=== PATIENT | female | born 1985 | race Caucasian/White ===

== ENCOUNTER 2017-12-10 08:53 | Inpatient (IN) | payer BC ==
[2017-12-04 15:12] VITALS: BMI 24.3
[2017-12-10] MEDS ORDERED: LACTATED RINGERS 1,000 ML IV ONE (10:07)
[2017-12-10] MEDS ORDERED: CITRIC ACID-SODIUM CITRATE 15 ML CUP PO ONE (10:07)
[2017-12-10 10:41] LABS: Basophils % (A) 0 %; Eosinophils % (A) 0 %; HCT 36.3 % (34.0-46.0); HGB 12.2 gm/dL (11.4-16.0); Lymphocytes # (A) 1.4 k/uL (1.0-4.8); Lymphocytes % (A) 20 %; MCH 28.6 pg (25.0-35.0); MCHC 33.5 g/dL (31.0-37.0); MCV 85.2 fL (80.0-100.0); Mean Platelet Volume 7.8; Monocytes # (A) 0.4 k/uL (0-1.0); Monocytes % (A) 5 %; Neutrophils # (A) 5.2 k/uL (1.3-7.7); Neutrophils % (A) 72 %; Platelet Count 192 k/uL (150-450); RBC 4.26 m/uL (3.80-5.40); RDW 13.3 % (11.5-15.5); WBC 7.2 k/uL (3.8-10.6)
[2017-12-10] MEDS ORDERED: CLINDAMYCIN 600 MG in DEXTROSE 5% IN WATER 50 ML IVPB STA ×2 (11:06)
[2017-12-10] MEDS: LACTATED RINGERS 1,000 ML IV SCH ×3 (11:07→23:34)
[2017-12-10] MEDS ORDERED: ONDANSETRON 4 MG/2 ML VIAL ONE (12:00)
[2017-12-10] MEDS ORDERED: KETOROLAC 30 MG/ML 1 ML VIAL ONE (12:00)
[2017-12-10] MEDS ORDERED: NALBUPHINE 10 MG/ML VIAL (10ML MDV) ONE (12:00)
[2017-12-10] MEDS ORDERED: OXYTOCIN 10 UNIT/ML 1 ML VIAL ONE (12:00)
[2017-12-10] MEDS ORDERED: fentaNYL (PF) 50 MCG/ML 2 ML AMP ONE (12:00)
[2017-12-10] MEDS ORDERED: MORPHINE SULFATE (PF) 0.3 MG/0.3 ML SYR ONE (12:00)
[2017-12-10] MEDS ORDERED: PHENYLEPHRINE-0.9% NACL SYG 1 MG/10 ML SYRINGE ONE (12:00)
[2017-12-10] MEDS ORDERED: NALOXONE 0.4 MG/ML 1 ML VIAL IV PRN ×2 (12:30→12:55)
[2017-12-10] MEDS ORDERED: diphenhydrAMINE 50 MG/ML 1 ML VIAL IVP PRN ×2 (12:55)
[2017-12-10] MEDS ORDERED: diphenhydrAMINE 25 MG CAP PO PRN (12:55)
[2017-12-10] MEDS ORDERED: ONDANSETRON 4 MG/2 ML VIAL IVP PRN ×2 (12:55→20:43)
[2017-12-10] MEDS ORDERED: diphenhydrAMINE 50 MG CAP PO PRN (12:55)
[2017-12-10] MEDS ORDERED: ZOLPIDEM 5 MG TAB PO PRN (12:55)
[2017-12-10] MEDS ORDERED: METOCLOPRAMIDE 5 MG/ML 2 ML VIAL IVP PRN (12:55)
[2017-12-10] MEDS ORDERED: LANOLIN CREAM 5 GM TUBE TOPICAL PRN (12:55)
[2017-12-10] MEDS ORDERED: OXYTOCIN 20 UNITS/1000 ML NS 1,000 ML IV SCH (13:00)
[2017-12-10] MEDS ORDERED: ACETAMINOPHEN IV (For NPO) 1,000 MG in EMPTY BAG 1 BAG IVPB ONE (13:00)
[2017-12-10] MEDS ORDERED: LACTATED RINGERS 1,000 ML IV SCH (13:00)
--- NOTE | 2017-12-10 13:02 | P.HPOB ---
History of Present Illness H&P Date: 12/10/17 Chief Complaint: IUP at 39-3/7 weeks, history of tailbone fracture desires LTCS with tubal This is a 32-year-old 2 para 1001 at 39-3/7 weeks with an estimated due date of 12/14/2017. Patient has had routine care with myself since the first trimester. She is without complaints this morning she is noting good movement denies contractions no vaginal bleeding or loss of fluid. On blood work she has a blood type of O+, rubella immune, hepatitis B surface antigen negative, HIV negative, RPR nonreactive, GBS neg Review of Systems Constitutional: Denies chills, Denies fever Cardiovascular: Denies edema Respiratory: Denies cough Gastrointestinal: Denies constipation, Denies diarrhea Genitourinary: Reports Past Medical History Past Medical History: No Reported History Additional Past Medical History / Comment(s): Tailbone fracture History of Any Multi-Drug Resistant Organisms: None Reported Past Surgical History: No Surgical Hx Reported Additional Past Surgical History / Comment(s): [place] Tooth Extraction Past Anesthesia/Blood Transfusion Reactions: No Reported Reaction Additional Past Anesthesia/Blood Transfusion Reaction / Comment(s): no hx general anesthesia or blood transfusion Past Psychological History: No Psychological Hx Reported Smoking Status: Never smoker Past Alcohol Use History: None Reported Past Drug Use History: None Reported - Past Family History Father Family Medical History: No Reported History Medications and Allergies Home Medications Medication Instructions Recorded Confirmed Type Pnv,Calcium 72/Iron/Folic Acid 1 tab PO DAILY 10/13/12/10/17 History [ Plus Tablet] Allergies Allergy/AdvReac Type Severity Reaction Status Date / Time Penicillins Allergy Unknown Verified 12/10/17 10:07 Childhood Exam Osteopathic Statement: *. No significant issues noted on an osteopathic structural exam other than those noted in the History and Physical/Consult. - Vital Signs Vital signs: Vital Signs Temp Pulse Resp BP Pulse Ox 12/10/17 10:09 97.5 F L 84 14 109/61 100 - OBG Physical Exam Abdomen: Gravid Uterus: enlarged (Appropriate for gestational age) Results Result Diagrams: 12/10/17 10:15 Assessment and Plan (1) Term Current Visit: Yes Status: Acute Code(s): Z34.80 - ENCOUNTER FOR SUPRVSN OF NORMAL , UNSP TRIMESTER SNOMED Code(s): 12434215 (2) Tailbone injury Current Visit: Yes Status: Acute Code(s): S39.92XA - UNSPECIFIED INJURY OF LOWER BACK, INITIAL ENCOUNTER SNOMED Code(s): 238428069 Plan: Plan primary low transverse section with tubal secondary to history of tailbone fracture and low back discomfort since the fracture. She does desire tubal ligation and is done with childbearing. was discussed with the patient in detail risks were reviewed patient stated understanding and informed consent was obtained. Will proceed OR
--- NOTE | 2017-12-10 13:06 | P.OP ---
Date of Procedure: 12/10/17 Preoperative Diagnosis: IUP at 39 and 3, history of tailbone fracture, family status complete Postoperative Diagnosis: Same Procedure(s) Performed: Primary low transverse section with tubal ligation Anesthesia: spinal Surgeon: Carlyn Brower Yard Assistant #1: Ralph Viveros Estimated Blood Loss (ml): 600 IV fluids (ml): 1,500 Urine output (ml): 500 Pathology: none sent Condition: stable Disposition: observation Indications for Procedure: History of tailbone fracture Operative Findings: Normal uterus tubes and ovaries were appreciated Description of Procedure: The patient was prepped and draped in the usual fashion after spinal anesthesia was administered by anesthesia. A Pfannenstiel incision was made and extended of the abdominal cavity without difficulty. The bladder peritoneum was elevated and incised and reflected distally. A 2 cm incision was made in the transverse plane of the lower uterine segment to enter the uterus at which time clear fluid was noted. The incision was extended in both directions using the bandage scissors. The head was encountered within the field and delivered up and through the incision where the nose and mouth were thoroughly suctioned. Remainder of the was delivered onto the surgical field where the cord was doubly clamped, cut, and the infant was passed for resuscitative measures with weight and Apgars as noted above. A segment of cord was then doubly clamped, cut, and set aside should cord gases become necessary. The placenta was delivered manually, intact, and was grossly normal with a grossly normal three-vessel cord. The uterus was exteriorized and the interior cavity of the uterus swept of any remaining placental and membranous fragments with a laparotomy sponge. The margins of the incision were grasped with allis clamps and the incision closed in 2 layers. First layer was a running locking layer of 0 vicryl from margin to margin followed by a second layer of imbricating 0 vicryl from margin to margin. Any small points of bleeding were then made hemostatic with the Bovie. Once hemostasis was achieved, the posterior cul-de- sac was suctioned with a guard and the uterine and ovarian findings are as noted above. The left fallopian tube was then grasped the [place] clamp crushed with a stat, and tied off 2 with oh plain catgut section of tube was then transected and hemostasis was appreciated. This was then repeated on the opposite side with good hemostasis noted once again The uterus was replaced within the abdominal cavity and the gutters swept of any remaining blood fluid or clot. The incision was again reexamined and hemostasis was noted to be excellent. Any small point of bleeding were made hemostatic with the Bovie. Once hemostasis was achieved the parietal peritoneum was loosely reapproximated. The layer of muscles were examined and made hemostatic with the Bovie. Attention was then turned to the fascia which was closed with 2 running stitches of 0 Vicryl proceeding from the lateral margins to the midpoint. The subcutaneous tissues were irrigated, made hemostatic with the Bovie, and reapproximated with a running stitch of 30 plain catgut. The skin was reapproximated with regular surgical van. Estimated blood loss for the case was approximately 600 mL. All sponge instrument and needle counts are correct. There were no complications. The patient tolerated the procedure well and proceeded to the recovery room in stable condition. Both mother and are resting comfortably in recovery. male infant delivered at 1221, weight 7-4, apgars 8-9 at one and 5 minutes respectively.
[2017-12-10] MEDS ORDERED: IBUPROFEN IV 800 MG in SODIUM CHLORIDE 0.9% 250 ML IV ONE (13:30)
[2017-12-10] MEDS: SENNOSIDES-DOCUSATE SODIUM 1 EACH TAB PO SCH (20:23)
[2017-12-11] MEDS: IBUPROFEN 600 MG TAB PO PRN ×4 (02:54→23:55)
[2017-12-11] MEDS: SENNOSIDES-DOCUSATE SODIUM 1 EACH TAB PO SCH ×2 (07:50→19:27)
[2017-12-11] MEDS: PRENATAL VIT-IRON-FOLIC ACID 1 EACH CAP PO SCH (07:51)
[2017-12-11] MEDS: ACETAMINOPHEN TAB 325 MG TAB PO PRN ×2 (07:51→12:20)
--- NOTE | 2017-12-11 08:27 | P.PNOBGPC ---
Subjective - Subjective Principal diagnosis: Postop day 1 status post primary low transverse section with tubal Interval history: Patient's postoperative course is going well. She is ambulating and voiding without difficulty. She states her pain is well-controlled with oral Tylenol and Motrin. She denies nausea or vomiting and is tolerating a regular diet. She is breast-feeding without difficulty and states her lochia is moderate. Patient reports: Reports appetite normal, Reports voiding normally, Reports pain well controlled, Reports ambulating normally [place]: doing well (At the bedside with mom) Objective - Vital Signs Latest vital signs: Vital Signs Temp Pulse Resp BP Pulse Ox 12/11/17 06:00 16 12/11/17 04:30 98.4 F 93 16 100/57 98 12/11/17 02:00 16 12/10/17 23:30 97.5 F L 87 16 109/65 98 12/10/17 22:00 16 12/10/17 19:40 97.9 F 84 16 110/70 98 12/10/17 17:30 100 12/10/17 17:00 16 12/10/17 16:00 97.8 F 62 16 100/49 100 12/10/17 15:30 16 12/10/17 14:58 70 16 99/61 12/10/17 14:28 98.1 F 69 18 101/58 12/10/17 13:58 97.4 F L 72 18 103/59 12/10/17 13:43 97.5 F L 77 16 102/58 12/10/17 13:30 97.8 F 76 18 97 12/10/17 13:28 75 16 96/54 12/10/17 13:13 81 16 96/51 12/10/17 12:58 97.9 F 88 18 109/56 12/10/17 12:30 97.7 F 88 18 109/59 97 12/10/17 10:09 97.5 F L 84 14 109/61 100 Intake and Output 12/10/17 12/11/17 12/11/17 22:59 06:59 14:59 Intake Total 1000 Output Total 600 1000 300 Balance -600 0 -300 Intake: Intake, IV Titration 1000 Amount Lactated Ringers 1,000 ml 1000 @ 125 mls/hr IV .Q8H [facility] Rx#:[id number] Output: Urine 600 1000 300 Uretheral (Garcia) 600 Other: Voiding Method Indwelling Catheter - Exam Extremities: Present: normal Abdomen: Present: normal appearance Incision: Present: normal (Bandage intact), dry, intact Uterus: Present: firm Assessment and Plan (1) Term Current Visit: Yes Status: Acute Code(s): Z34.80 - ENCOUNTER FOR SUPRVSN OF NORMAL , UNSP TRIMESTER SNOMED Code(s): 87746311 (2) Tailbone injury Current Visit: Yes Status: Acute Code(s): S39.92XA - UNSPECIFIED INJURY OF LOWER BACK, INITIAL ENCOUNTER SNOMED Code(s): 084293950 (3) S/P section Current Visit: Yes Status: Acute Code(s): Z98.891 - HISTORY OF UTERINE SCAR FROM PREVIOUS SURGERY SNOMED Code(s): 258827584 (4) S/P tubal ligation Current Visit: Yes Status: Acute Code(s): Z98.51 - TUBAL LIGATION STATUS SNOMED Code(s): 69415978945133 Plan: Will continue routine postoperative care. Await CBC this morning
[2017-12-11 08:38] LABS: Basophils % (A) 0 %; Eosinophils % (A) 0 %; HCT 30.9 % (34.0-46.0); HGB 10.4 gm/dL (11.4-16.0); Lymphocytes # (A) 1.1 k/uL (1.0-4.8); Lymphocytes % (A) 11 %; MCH 29.1 pg (25.0-35.0); MCHC 33.6 g/dL (31.0-37.0); MCV 86.7 fL (80.0-100.0); Mean Platelet Volume 7.9; Monocytes # (A) 0.4 k/uL (0-1.0); Monocytes % (A) 4 %; Neutrophils # (A) 8.4 k/uL (1.3-7.7); Neutrophils % (A) 83 %; Platelet Count 209 k/uL (150-450); RBC 3.56 m/uL (3.80-5.40); RDW 13.3 % (11.5-15.5); WBC 10.1 k/uL (3.8-10.6)
[2017-12-11] MEDS: ONDANSETRON 4 MG TAB PO PRN (19:27)
[2017-12-11] MEDS: HYDROcodone/APAP 5-325MG 1 EACH TAB PO PRN (19:27)
[2017-12-12] MEDS: HYDROcodone/APAP 5-325MG 1 EACH TAB PO PRN (02:51)
[2017-12-12] MEDS: IBUPROFEN 600 MG TAB PO PRN ×4 (06:22→23:38)
[2017-12-12] MEDS: SENNOSIDES-DOCUSATE SODIUM 1 EACH TAB PO SCH ×2 (08:16→20:03)
--- NOTE | 2017-12-12 08:52 | P.PNOBGPC ---
Subjective - Subjective Principal diagnosis: POD 2 LTCS TL Interval history: Overall patient is doing well. She is ambulatory and voiding without difficulty. She did have 1 episode of nausea and vomiting last evening after eating dinner. But she states her pain was a little higher than it has been and after pain medication she felt much improved. She states her lochia is minimal. She is attempting breast-feeding with issues with latch that she is continuing to work on. Given is having some difficulty with feeding most likely she will stay 1 more day Patient reports: Reports appetite normal, Reports voiding normally, Reports pain well controlled, Reports ambulating normally [place]: doing well (Struggling with breast-feeding) Objective - Vital Signs Latest vital signs: Vital Signs Temp Pulse Resp BP Pulse Ox 12/11/17 23:30 98.3 F 90 16 105/55 12/11/17 18:00 18 12/11/17 16:00 97.8 F 81 18 88/50 100 12/11/17 14:00 16 12/11/17 12:00 97.9 F 68 18 98/62 97 12/11/17 10:00 18 Intake and Output 12/11/17 12/12/17 12/12/17 22:59 06:59 14:59 Output Total 1 Balance -1 Output: Urine 1 Other: # Voids 1 - Exam Extremities: Present: normal Abdomen: Present: normal appearance, soft Incision: Present: normal, dry, intact Uterus: Present: normal, firm Assessment and Plan (1) Term Current Visit: Yes Status: Acute Code(s): Z34.80 - ENCOUNTER FOR SUPRVSN OF NORMAL , UNSP TRIMESTER SNOMED Code(s): 57327491 (2) Tailbone injury Current Visit: Yes Status: Acute Code(s): S39.92XA - UNSPECIFIED INJURY OF LOWER BACK, INITIAL ENCOUNTER SNOMED Code(s): 801525190 (3) S/P section Current Visit: Yes Status: Acute Code(s): Z98.891 - HISTORY OF UTERINE SCAR FROM PREVIOUS SURGERY SNOMED Code(s): 624875832 (4) S/P tubal ligation Current Visit: Yes Status: Acute Code(s): Z98.51 - TUBAL LIGATION STATUS SNOMED Code(s): 39773061148506 Plan: Patient is doing well overall and routine postoperative care will continue. She is encouraged to work on breast-feeding with a marketing regional consultant today and feet as necessary. We'll await pediatrics recommendations for the infant.
[2017-12-12] MEDS: PRENATAL VIT-IRON-FOLIC ACID 1 EACH CAP PO SCH (11:55)
[2017-12-12] MEDS: ACETAMINOPHEN TAB 325 MG TAB PO PRN ×2 (14:44→22:12)
[2017-12-12] MEDS: ONDANSETRON 4 MG TAB PO PRN (20:03)
[2017-12-13] MEDS: ACETAMINOPHEN TAB 325 MG TAB PO PRN ×2 (04:47→11:01)
[2017-12-13] MEDS: IBUPROFEN 600 MG TAB PO PRN (07:20)
[2017-12-13] MEDS: SENNOSIDES-DOCUSATE SODIUM 1 EACH TAB PO SCH ×2 (07:21→10:16)
[2017-12-13 07:33] VITALS: BP 98/61; PULSE 71; RESP 18; TEMP 97.9
--- NOTE | 2017-12-13 08:16 | P.DS ---
Providers Date of admission: 12/10/17 09:56 Expected date of discharge: 12/13/17 Attending physician: Carlyn Brower Primary care physician: Stated None - Discharge Diagnosis(es) (1) Term Current Visit: Yes Status: Acute (2) Tailbone injury Current Visit: Yes Status: Acute (3) S/P section Current Visit: Yes Status: Acute (4) S/P tubal ligation Current Visit: Yes Status: Acute Hospital Course: This is a very pleasant 32-year-old 2 para 1001 that presented to labor and delivery for primary low transverse section secondary to history of tailbone fracture. She did desire tubal ligation as she was done with childbearing. was completed without difficulty for further details on the please see the operative report. A male was delivered at 1221, " jonathan" weight of 7 lbs. 4 oz., Apgars of 8 and 9 at one and 5 minutes respectively. Patient's postoperative course has been uneventful. She is feeling well on this postoperative day #3 she is ambulating and voiding without difficulty. She tolerating a regular diet. She states breast feeding is going well. In her lochia is moderate. Plan - Discharge Summary Discharge Rx Participant: Yes New Discharge Prescriptions: No Action Pnv,Calcium 72/Iron/Folic Acid [ Plus Tablet] 1 tab PO DAILY Discharge Medication List Pnv,Calcium 72/Iron/Folic Acid [ Plus Tablet] 1 tab PO DAILY 10/14/15 [ History] Follow up Appointment(s)/Referral(s): Carlyn Brower DO [Doctor of Osteopathic Medicine] - 2 Weeks Patient Instructions/Handouts: (DC), (GEN) Activity/Diet/Wound Care/Special Instructions: No intercourse or tub baths until 6 weeks Discharge Disposition: HOME SELF-CARE
[2017-12-13] MEDS: PRENATAL VIT-IRON-FOLIC ACID 1 EACH CAP PO SCH (10:19)
== END 2017-12-13 11:50 | disposition home or self-care (01) | DRG 766 ==
LOC: 4FBP 09:56
PROVIDERS: ADMIT Obstetrics & Gynecology Obstetrics; ATTEND Obstetrics & Gynecology Obstetrics
PROC: 0UB70ZZ Excision of Bilateral Fallopian Tubes, Open Approach (ICD-10-PCS; 2017-12-10)
PROC: 10D00Z1 Extraction of Products of Conception, Low, Open Approach (ICD-10-PCS; principal; 2017-12-10 12:00)
DX: O99.89 Other specified diseases and conditions complicating pregnancy, childbirth and the puerperium (principal); M53.3 Sacrococcygeal disorders, not elsewhere classified; Z3A.39 39 weeks gestation of pregnancy; Z37.0 Single live birth; Z30.2 Encounter for sterilization; Z88.0 Allergy status to penicillin; Z87.81 Personal history of (healed) traumatic fracture
CPT/HCPCS: 85025; 86850; 86900; 86901; 88302